=== PATIENT | female | born 1965 | race Caucasian/White ===

== ENCOUNTER 2019-12-17 09:05 | Observation (INO) | payer BC, OTHER ==
[~2019-12-17] VITALS: Ht 165.1 cm; Wt 68.2 kg
[2019-12-17] MEDS ORDERED: aspirin 81mg tab.chew PO ONE (09:20)
[2019-12-17 09:38] LABS: BASOPHILS % (AUTO) 0.4 % (0-1); EOSINOPHILS # (AUTO) 0.2 X10'3 (0-0.9); EOSINOPHILS % (AUTO) 1.6 % (0-6); HEMATOCRIT 44.5 % (35.0-45.0); HEMOGLOBIN 15.6 g/dl (12.0-16.0); LYMPHOCYTES # (AUTO) 1.2 X10'3 (1.1-4.8); LYMPHOCYTES % (AUTO) 11.9 % (21-51); MEAN CORPUSCULAR HEMOGLOBIN 31.4 PG (27.0-31.0); MEAN CORPUSCULAR VOLUME 89.9 FL (78-98); MEAN PLATELET VOLUME 7.9 FL (7.4-10.4); MONOCYTES # (AUTO) 0.5 X10'3 (0-0.9); MONOCYTES % (AUTO) 4.7 % (2-12); NEUTROPHILS # (AUTO) 7.9 X10'3 (1.8-7.7); NEUTROPHILS % (AUTO) 81.4 % (42-75); PLATELET COUNT 284 X10'3 (140-440); RED BLOOD COUNT 4.95 X10'6 (4.20-5.60); RED CELL DISTRIBUTION WIDTH 13.5 % (11.5-14.5); WHITE BLOOD COUNT 9.8 X10'3 (4.5-11.0)
[2019-12-17 09:56] LABS: ALANINE AMINOTRANSFERASE 25 U/L (12-78); ALBUMIN 4.4 G/DL (3.4-5.0); ALBUMIN/GLOBULIN RATIO 1.2 (1.1-1.5); ALKALINE PHOSPHATASE 72 IU/L (46-116); ANION GAP 7 (8-16); ASPARTATE AMINO TRANSFERASE 12 U/L (10-37); BILIRUBIN,TOTAL 0.4 MG/DL (0.1-1.0); BLOOD UREA NITROGEN 17 MG/DL (7-18); CALCIUM 9.9 MG/DL (8.5-10.1); CHLORIDE 104 MMOL/L (99-107); CREATININE 0.74 MG/DL (0.40-0.90); GLUCOSE 125 MG/DL (70-104); POTASSIUM 4.1 MMOL/L (3.5-5.1); SODIUM 140 MMOL/L (135-145); TOTAL PROTEIN 8.1 G/DL (6.4-8.2); eGFR 81 ML/MIN
[2019-12-17] MEDS ORDERED: normal saline 1000ml 1,000 ML IV SCH (11:09)
[2019-12-17] MEDS ORDERED: magnesium 4gm in 100ml NS 100 ML IV PRN (11:10)
[2019-12-17] MEDS ORDERED: IBUP-1984 PO (11:10)
[2019-12-17] MEDS ORDERED: potassium CL 10mEq/100ml bag 100 ML IV PRN ×2 (11:10)
[2019-12-17] MEDS ORDERED: acetaminophen 325mg tablet PO PRN (11:10)
[2019-12-17] MEDS ORDERED: PROP10TA10 PO (11:10)
[2019-12-17] MEDS ORDERED: morphine 2 MG/ML inj. syringe IV PRN (11:10)
[2019-12-17] MEDS ORDERED: potassium Cl 20 mEq SR tablet PO PRN ×2 (11:10)
[2019-12-17] MEDS ORDERED: LORA-269 PO (11:10)
[2019-12-17] MEDS ORDERED: magnesium Cl slow-release 64mg tablet PO PRN (11:10)
[2019-12-17] MEDS ORDERED: magnesium 2GM in 50ml NS 50 ML IV PRN (11:10)
[2019-12-17] MEDS ORDERED: HYDR-3686 PO (11:10)
[2019-12-17] MEDS ORDERED: nitroGLYCERIN 0.4mg SUBLingual tab SL PRN (11:20)
[2019-12-17] MEDS ORDERED: aminophylline 250mg/10ml inj. IV PRN (11:20)
[2019-12-17] MEDS ORDERED: regadenoson 0.4mg/5ml syringe IV PRN (11:20)
[2019-12-17] MEDS ORDERED: metoprolol tartrate 1mg/ml inj IV PRN (11:20)
--- NOTE | 2019-12-17 13:00 | NUR ---
Patient in room [facility]. I have received report from Laya RODRIGUEZ and had the opportunity to ask questions and assume patient care.
[2019-12-17] MEDS ORDERED: hydrOXYzine 25 MG tablet PO PRN (13:10)
[2019-12-17] MEDS ORDERED: LORazepam 1 MG tablet PO PRN (13:10)
[2019-12-17] MEDS: ondansetron/PF 4mg/2ml inj IV PRN ×2 (13:42→20:12)
[2019-12-17] MEDS: ibuprofen 200mg tablet PO PRN (13:47)
--- NOTE | 2019-12-17 15:45 | NUR ---
No report of chest pain so far. Visitor in room, will continue with all cares
--- NOTE | 2019-12-17 16:03 | NUR ---
patient c/o very slight pain on left side. tele chamber called. Normal sinus rhythm. will continue to monitor. resolved when patient rests was up going to [facility].
[2019-12-17 16:38] VITALS: BP 149/89
[2019-12-17 18:00] VITALS: BP 137/90
--- NOTE | 2019-12-17 18:06 | NUR ---
Received report from JENNIFER Garnett. Patient is awake and alert on room air, in no apparent distress. Call light and items of frequent use within reach. Will continue to monitor.
--- NOTE | 2019-12-17 18:22 | NUR ---
Problems reprioritized. Patient report given, questions answered & plan of care reviewed with dami RODRIGUEZ.
[2019-12-17] MEDS: K and/or MAG REPLACEMENT MC SCH (20:00)
[2019-12-17] MEDS: propranolol 10mg tablet PO SCH (20:12)
[2019-12-17] MEDS ORDERED: temazepam 15mg capsule PO PRN (21:00)
[2019-12-18] VITALS (17 sets, daily range): BP systolic 129–169; BP diastolic 68–94
[2019-12-18 05:28] LABS: ALBUMIN 3.9 G/DL (3.4-5.0); ANION GAP 8 (8-16); BLOOD UREA NITROGEN 13 MG/DL (7-18); BUN/CREATININE RATIO 18.1 (6.6-38.0); CALCIUM 9.7 MG/DL (8.5-10.1); CHLORIDE 107 MMOL/L (99-107); CREATININE 0.72 MG/DL (0.40-0.90); GLUCOSE 100 MG/DL (70-104); MAGNESIUM 1.8 MG/DL (1.5-2.4); POTASSIUM 3.8 MMOL/L (3.5-5.1); SODIUM 143 MMOL/L (135-145); TOTAL CARBON DIOXIDE 28.5 MMOL/L (24-32); eGFR 84 ML/MIN
[2019-12-18 05:33] LABS: BASOPHILS % (AUTO) 0.4 % (0-1); EOSINOPHILS # (AUTO) 0.1 X10'3 (0-0.9); EOSINOPHILS % (AUTO) 1.9 % (0-6); HEMOGLOBIN 14.6 g/dl (12.0-16.0); LYMPHOCYTES # (AUTO) 1.2 X10'3 (1.1-4.8); LYMPHOCYTES % (AUTO) 18.1 % (21-51); MEAN CORPUSCULAR HEMOGLOBIN 30.6 PG (27.0-31.0); MEAN CORPUSCULAR VOLUME 89.7 FL (78-98); MEAN PLATELET VOLUME 8.2 FL (7.4-10.4); MONOCYTES # (AUTO) 0.6 X10'3 (0-0.9); MONOCYTES % (AUTO) 8.2 % (2-12); NEUTROPHILS # (AUTO) 4.8 X10'3 (1.8-7.7); NEUTROPHILS % (AUTO) 71.4 % (42-75); PLATELET COUNT 242 X10'3 (140-440); RED BLOOD COUNT 4.79 X10'6 (4.20-5.60); RED CELL DISTRIBUTION WIDTH 13.6 % (11.5-14.5); WHITE BLOOD COUNT 6.8 X10'3 (4.5-11.0)
--- NOTE | 2019-12-18 06:00 | NUR ---
Patient in room [facility]. I have received report from JENNIFER Field and had the opportunity to ask questions and assume patient care.
--- NOTE | 2019-12-18 06:09 | NUR ---
Problems reprioritized. Patient report given, questions answered & plan of care reviewed with JENNIFER Valencia.
[2019-12-18] MEDS: K and/or MAG REPLACEMENT MC SCH (08:00)
[2019-12-18] MEDS: ibuprofen 200mg tablet PO PRN (12:23)
[2019-12-18] MEDS: propranolol 10mg tablet PO SCH (12:23)
[2019-12-18] MEDS ORDERED: PANT-47 PO (13:03)
[2019-12-18] MEDS ORDERED: NITR0.4T51 SL (13:04)
--- NOTE | 2019-12-18 14:30 | NUR ---
Patient discharged home into care of . Patient IV and Tele removed, patient verbalized understanding of discharge orders and will follow up with primary care provider. Medications were escripted to preferred pharmacy and home medications were returned to patient. Patient alert, oriented, and appropriate for discharge, escorted downstairs by a member of the staff.
== END 2019-12-18 12:08 | disposition home or self-care (01) ==
LOC: ER 09:05 → ED HOLD 11:09 → SUR 3N 12:19
PROVIDERS: ADMIT Internal Medicine; ATTEND Internal Medicine
DX: R07.89 Other chest pain (principal); F41.9 Anxiety disorder, unspecified; G25.2 Other specified forms of tremor; F12.90 Cannabis use, unspecified, uncomplicated; Z79.899 Other long term (current) drug therapy; Z88.0 Allergy status to penicillin; Z88.8 Allergy status to other drugs, medicaments and biological substances
CPT/HCPCS: 36415; 71045; 78452; 80048; 80053; 83735; 84484; 85025; 87081; 93005; 93017; 93306; 96374; 96375; 96376; 99284; A9500; G0378; J0280; J2405; J2785; J7030